=== PATIENT | male | born 1985 | race African-American/Black ===

== ENCOUNTER 2021-06-06 09:28 | Emergency (ER) | payer OTHER, SELFPAY ==
[2021-06-06 09:30] VITALS: BP 146/82; PULSE 74; RESP 18; TEMP 36.7; O2SAT 94; BMI 51.2
--- NOTE | 2021-06-06 09:57 | ED.GENADULT ---
HPI - General Adult General Chief complaint: General Medical Stated complaint: sore throat and ear pain Time Seen by Provider: 06/06/21 09:52 Source: patient Mode of arrival: ambulatory Limitations: no limitations History of Present Illness HPI narrative: 35 y/o male presents to the ER with a few days of sore throat, dry cough, headache and ear pressure. He has a runny nose and nasal congestion. He denies any known sick contacts. He is vaccinated for both Flu and COVID. He denies SOB, chest pain or difficulty breathing. He reports sore throat is the worst symptom, worse with eating and drinking but he is able to tolerate PO at home. He reports history of several throat infections in the past requiring abx. MD complaint: sore throat Onset (ago): day(s) (3) Location: head, face and mouth Radiation: non-radiation Severity: moderate Severity scale (1-10): 5 Quality: aching Pain Consistency: constant Relieving factors: none Exacerbating factors: eating Associated symptoms: cough and headaches Treatments prior to arrival: none Related Data Previous Rx's Medication Instructions Recorded azithromycin 250 mg tablet See Rx Instructions .ROUTE 06/06/21 (Zithromax Z-Edu) .COMPLEX #6 tab ibuprofen 600 mg tablet 600 mg PO Q8H PRN #20 tab 06/06/21 Allergies Allergy/AdvReac Type Severity Reaction Status Date / Time No Known Allergies Allergy Verified 06/06/21 09:38 [No Known Allergies*] Review of Systems Review of Systems: Constitutional: No Fever, No Chills ENT/Mouth: + sore throat, + Rhinorrhea, + Swallowing Difficulty, +Otalgia Eyes: No Eye Pain, No Swelling, No Redness Cardiovascular: No Chest Pain, No SOB, No Orthopnea, No Edema Respiratory: + Cough, No Sputum, No Wheezing, No dyspnea Gastrointestinal: No Nausea, No Vomiting, No Diarrhea, No abdominal Pain Musculoskeletal: No joint pain, No Myalgias Skin: No Skin Lesions, No rash Neuro: No Weakness, No Numbness, No Dizziness, + Headache Heme/Lymph: No Lymphadenopathy PMFSH Past Medical History Medical History (Updated 06/06/21 @ 10:45 by SHAWANDA Mcgee) HTN (hypertension) Social History Social History Advance Directives: No Advance Directives Information Provided: Yes Physical Exam ED Vital Signs: Vital Signs - 24 hr 06/06/21 09:30 Temperature 98.1 F Pulse Rate 74 Respiratory Rate 18 Blood Pressure 146/82 H Pulse Oximetry 94 BMI result Body Mass Index 51.2 Appearance: Alert. Oriented X3. No acute distress. Eyes: Pupils equal, round and reactive to light. ENT: Pharynx moist mucous membranes, bilateral tonsillar enlargement and erythema without exudate. Uvula midline. Normal voice, handling secretions normally. Ears have erythematous but not bulging tympanic membranes bilaterally. Landmarks are visible. Neck: Normal inspection. Neck supple. No lymphadenopathy. CVS: Normal heart rate and rhythm. Pulses normal. Respiratory: No respiratory distress. Breath sounds normal. Skin: Skin warm and dry. Normal skin color. Normal skin turgor. No rashes. Extremities: No lower extremity edema. Neuro: Oriented X 3. Grossly normal, nonfocal Course Course Course Narrative: 35-year-old male presents to the ER with a few days of sore throat, headache, ear pressure, nasal congestion and cough. No known sick contacts. On examination he has bilateral tonsillar enlargement without exudate. No evidence of tonsillar abscess. His vital signs are normal and exam is otherwise unremarkable. He was tested for COVID, influenza, strep throat in all are negative. Given his history will treat with empiric course of azithromycin. He was encourage follow-up with his primary care doctor. Return precautions were discussed. Stable for discharge home. Medical Decision Making Lab Data Labs: Lab Results 06/06/21 06/06/21 06/06/21 Range/Units 09:44 09:44 10:07 COVID-19 ([facility]) Negative (Negative) COVID-19 Clin Com See Note Influenza Type A ([facility]) Negative (Negative) Influenza Type B ([facility]) Negative (Negative) Influenza A & B Note See Note S. pyogenes GrpA [facility] Negative (Negative) Discharge Plan Discharge Clinical Impression: Pharyngitis Patient Disposition: Home, Self-Care Instructions: Upper Respiratory Infection (DC) Additional Instructions: You are negative for COVID, Influenza, & Strep throat. Take the prescribed antibiotic as directed. Use warm salt water gargles several times per day for sore throat. Recommend over the counter Cepacol lozenges or Chloraseptic spray as needed for sore throat. If you develop new or worsening symptoms call 911 or come back to the ER for further evaluation. Prescriptions: New azithromycin [Zithromax Z-Edu] 250 mg tablet See Rx Instructions .ROUTE .COMPLEX Qty: 6 0RF Rx Instructions: take 500 mg today (day 1), then 250 mg for 4 days (days 2-5) ibuprofen 600 mg tablet 600 mg PO Q8H PRN (Reason: pain) Qty: 20 0RF Stand Alone Forms: Work/School Release Interventions: ED Discharge Assessment Last Done: 06/06/21 10:56 Discharge Date/Time: 06/06/21 10:57 Print Language: Belarusian
[2021-06-06 10:15] LABS: IDNOW Serial# 08D9AD1C; Influenza A Negative (Negative); Influenza B2 Negative (Negative)
[2021-06-06] MEDS: Ibuprofen 600 MG TABLET PO (10:25)
[2021-06-06] MEDS: Lidocaine HCl Viscous 2 % 15 ML SOLUTION MUCOUS MEM (10:25)
[2021-06-06 10:30] LABS: COVID-19 Test Negative (Negative)
[2021-06-06 10:31] LABS: Strep A Nucleic Acid Negative (Negative)
== END 2021-06-06 10:57 | disposition home or self-care (01) ==
PROVIDERS: Physician Assistant; Emergency Provider Emergency Medicine
DX: J02.9 Acute pharyngitis, unspecified (principal); I10 Essential (primary) hypertension; Z20.822 Contact with and (suspected) exposure to COVID-19
CPT/HCPCS: 36415; 87502; 87635; 87651; 99283

== ENCOUNTER 2021-12-01 12:05 | Emergency (ER) | payer OTHER, SELFPAY ==
--- NOTE | ~2021-12-01 | XR_ITS ---
EXAMINATION: XR CHEST CLINICAL INFORMATION: Cough, shortness of breath. COMPARISON: 04/09/2009 chest radiograph. TECHNIQUE: 2 views of the chest were obtained. FINDINGS: No significant abnormality is noted involving the heart, lungs, mediastinum, bony thorax or soft tissues. XR/XR chest 2V IMPRESSION: No acute cardiopulmonary process.
--- NOTE | ~2021-12-01 | CT_ITS ---
EXAMINATION: CT CHEST WITHOUT CONTRAST CLINICAL INFORMATION: sob, cp . COMPARISON: No pertinent prior studies are available for comparison. TECHNIQUE: Multidetector volumetric imaging was performed from the thoracic inlet through the lung bases without contrast. Sagittal and coronal reformatted images were obtained on the technologist workstation. Soft tissue and lung algorithms evaluated. Thick slab MIP images were performed to increase nodule conspicuity. This CT examination was performed using dose optimization techniques as appropriate, variously including the following: *Automated exposure control *Adjustment of mA and/or kV according to patient size (this includes techniques or standardized protocols for targeted exams where dose is matched to indication/reason for exam; i.e. extremities or head) *Use of iterative reconstruction technique DLP: 550 mGy-cm. FINDINGS: LUNG: Linear atelectatic changes of the right lung base. On the thin slice images there is a few mucous impacted or debris filled bronchi seen more so in the dependent right lower lobe as well. No dense consolidation. MEDIASTINUM: The mediastinum is normal. The central vascular structures are unremarkable. No hilar or mediastinal lymphadenopathy. CORONARY ARTERY CALCIFICATION: Absent PERICARDIUM/PLEURA: No significant effusion. No pleural mass or thickening. THYROID/VISUALIZED LOWER NECK: Unremarkable. CHEST WALL/AXILLA: Unremarkable. VISUALIZED UPPER ABDOMEN: Unremarkable. BONES: Unremarkable CT/CT chest wo IV con IMPRESSION: There are a few mucous impacted or debris-filled bronchi seen in the dependent right lower lobe. No dense consolidation otherwise.
[2021-12-01 16:03] VITALS: BP 143/92; PULSE 97; RESP 19; TEMP 37.4; O2SAT 97; BMI 50.1
[2021-12-01 16:13] LABS: MANUAL DIFF FLAG NO
[2021-12-01 16:15] LABS: Basophils Percent Auto 0.3 % (0-2); Eosinophils Percent Auto 0.2 % (0-4); Hematocrit 43.4 % (42.0-52.0); Hemoglobin 13.3 g/dl (14.0-18.0); Imm Gran Abs Auto 0.04 X10*3/uL (0.00-0.03); Imm Gran Pct Auto 0.4 % (0.0-0.4); Lymphocytes Absolute Auto 2.3 X10*3/uL (1.2-4.9); Lymphocytes Percent Auto 21.2 % (20-40); Mean Corpuscular HGB Conc 30.6 g/dl (31.0-36.0); Mean Corpuscular Hemoglobin 24.3 pg (27.0-33.0); Mean Corpuscular Volume 79.2 fL (80.0-98.0); Mean Platelet Volume 9.7 fL (9.4-12.4); Neutrophils Absolute Auto 7.6 x10*3/uL (2.0-8.3); Neutrophils Percent Auto 68.9 % (45-73); Platelet Count 345 X10*3/uL (160-400); Red Blood Count 5.48 X10*6/uL (4.60-5.80); Red Cell Distribution Width 15.4 % (11.0-16.0)
[2021-12-01 16:28] LABS: COVID-19 Test Negative (Negative)
[2021-12-01 16:36] LABS: Anion Gap 15 (12-20); Blood Urea Nitrogen 9 mg/dL (9-16); Calcium 9.1 mg/dL (8.4-10.2); Carbon Dioxide 27 mmol/L (22-29); Chloride 104 mmol/L (96-108); Estimated Glomerular Filt Rate > 60; Glucose Random 89 mg/dL (60-115); Potassium 4.5 mmol/L (3.3-5.1); Sodium 141 mmol/L (135-145)
[2021-12-01 20:43] VITALS: BP 137/67; PULSE 105; RESP 18; TEMP 37.6; O2SAT 97
--- NOTE | 2021-12-01 22:05 | ED_ITS ---
HPI - SOB/Dyspnea General Chief Complaint: Upper Respiratory Symptoms Stated Complaint: Cough/SOB/Pain in lungs Time Seen by Provider: 12/01/21 22:04 Source: patient Mode of arrival: ambulatory Limitations: language barrier History of Present Illness HPI Narrative: 35-year-old male presents for evaluation for 2 weeks of upper respiratory symptoms, shortness breath, fever, cough, sore throat, with multiple negative COVID tests. States that he has taken Motrin yesterday with poor effect. MD elicited complaint: shortness of breath and chest pain Onset (ago): week(s) (2) Context: recent illness Timing: constant and progressively worsening Severity: moderate Exacerbating factors: exertion, coughing, talking and deep breaths Relieving factors: nothing Associated symptoms: chest pain, fever, cough, wheezing and chest congestion Treatment prior to arrival: none Related Data Previous Rx's Medication Instructions Recorded azithromycin 250 mg tablet See Rx Instructions PO .COMPLEX #6 06/06/21 (Zithromax Z-Edu) tabs ibuprofen 600 mg tablet 600 mg PO Q8H PRN pain #20 tabs 06/06/21 azithromycin 250 mg tablet 250 mg PO DAILY 4 days #4 tabs 12/01/21 cephalexin 500 mg capsule 500 mg PO Q12H 10 days #20 caps 12/01/21 Allergies Allergy/AdvReac Type Severity Reaction Status Date / Time No Known Allergies Allergy Verified 06/06/21 09:38 [No Known Allergies*] Review of Systems Review of Systems: Constitutional: Positive Fever, positive Chills ENT/Mouth: Positive Ear Pain, No Hoarseness, positive sore throat Eyes: No Eye Pain, No Swelling, No Redness, No Foreign Body Cardiovascular: Positive Chest Pain, positive SOB Respiratory: Positive Cough, No Dyspnea Gastrointestinal: No Nausea, No Vomiting, No Diarrhea, No abdominal Pain Genitourinary: No Dysuria, No Hematuria Musculoskeletal: No joint pain, No Myalgias, No Joint Swelling Skin: No Skin lacerations, No rash Neuro: No Weakness, No Numbness, No Paresthesias, No Loss of Consciousness, No Dizziness, No Headache Psych: No Anxiety/Panic, No Depression Heme/Lymph: no easy bruising, no Lymphadenopathy Endocrine: No Polyuria, No Polydipsia Yes all other systems are reviewed and are negative PMFSH Past Medical History Attestation statement: The following information was validated with the patient. Source: old records reviewed Medical History HTN (hypertension) Social History Social History Advance Directives: No Advance Directives Information Provided: No Physical Exam Vital Signs: Vital Signs: Last Vital Signs Temp 99.1 F 12/01/21 23:30 Pulse 94 12/01/21 23:30 Resp 18 12/01/21 23:30 BP 129/64 12/01/21 23:30 Pulse Ox 97 12/01/21 23:30 O2 Del Method 12/01/21 23:30 BMI result Body Mass Index 50.1 Appearance: Alert. Oriented X3. Mild distress. Eyes: Pupils equal, round and reactive to light. ENT: Pharynx erythematous, bilateral tonsillar swelling with exudates. Centor scale 3 Neck: Normal inspection. Neck supple. Posterior and anterior cervical lymphadenopathy, no mastoid tenderness, no nuchal rigidity. CVS: Tachycardic heart rate and rhythm. Apical pulse with pulses to extremities. Respiratory: No respiratory distress. Breath sounds normal. Abdomen: Soft and nontender. Morbidly obese. Skin: Skin warm and dry. Normal skin color. Normal skin turgor. Extremities: No lower extremity edema. Gait well-balanced well coordinated. Neuro: No motor deficit. No sensory deficit. Cranial nerves 2-12 intact. Course Course Course Narrative: 35-year-old male presents for evaluation for 2 weeks of upper respiratory symptoms, fevers, chills, cough, shortness of breath, and sore throat. Has had multiple COVID test negative results. Took Motrin yesterday with poor he is able to eat and drink without difficulty, speaking in complete sentences, even unlabored respirations. Physical exam indicates bilateral tonsillar swelling with pharyngeal erythema, posterior and anterior cervical lymphadenopathy and scattered expiratory wheeze. Patient has intermittent fevers over the past 2 weeks, has been in the waiting room for 6 hours, labs and x-ray resulted while patient was in the emergency department waiting room. Patient has a white count of 11, negative COVID test, and an unremarkable chest x-ray. Considering patient's physical exam, will order CT scan of the chest due to patient's complaint of diffuse chest pain, pain on inspiration, cough and fevers. 23:40 CT scan is negative for acute findings, shows some debris in the bronchi, will treat for pharyngitis and bronchitis with azithromycin and Ceftin. Patient was offered Tylenol, stated that Tylenol ?makes stomach upset? and prefers Motrin. Will have patient take 600 mg of Motrin prior to discharge. diplomatic interpreter/translator utilized for all correspondence. Google translate utilized for discharge instructions. Patient verbalized understanding agrees. Discharge. Verbalized understanding signs symptoms indicating need for emergent intervention. MDM - SOB/Dyspnea Differential Diagnosis Differential diagnosis: Likely acute exacerbation of chronic obstructive airways disease, pneumonia, asthma with exacerbation, pleural effusion and sleep apnea Medical Records Attestation: I reviewed the patient's medical records. Lab Data Attestation: I reviewed the patient's lab results. Result diagrams: 12/01/21 16:10 12/01/21 16:10 Labs: Lab Results 12/01/21 12/01/21 12/01/21 Range/Units 16:10 16:10 16:10 WBC 11.0 H (4.8-10.8) X10*3/uL RBC 5.48 (4.60-5.80) X10*6/uL Hgb 13.3 L (14.0-18.0) g/dl Hct 43.4 (42.0-52.0) % MCV 79.2 L (80.0-98.0) fL MCH 24.3 L (27.0-33.0) pg MCHC 30.6 L (31.0-36.0) g/dl RDW 15.4 (11.0-16.0) % Plt Count 345 (160-400) X10*3/uL MPV 9.7 (9.4-12.4) fL Immature Gran % (Auto) 0.4 (0.0-0.4) % Neut % (Auto) 68.9 (45-73) % Lymph % (Auto) 21.2 (20-40) % [place] % (Auto) 9.0 (2-11) % Eos % (Auto) 0.2 (0-4) % Baso % (Auto) 0.3 (0-2) % Lymph # (Auto) 2.3 (1.2-4.9) X10*3/uL [place] # (Auto) 1.0 (0.1-1.2) X10*3/uL Eos # (Auto) 0.0 (0.0-0.4) X10*3/uL Baso # (Auto) 0.0 (0.0-0.2) X10*3/uL Abs Immat Gran (auto) 0.04 H (0.00-0.03) X10*3/uL Absolute Neuts (auto) 7.6 (2.0-8.3) x10*3/uL Absolute Nucleated RBC 0.000 (0.0-0.012) X10*3/uL Nucleated RBC % (auto) 0.0 (0.0-0.2) /100WBC Sodium 141 (135-145) mmol/L Potassium 4.5 (3.3-5.1) mmol/L Chloride 104 (96-108) mmol/L Carbon Dioxide 27 (22-29) mmol/L Anion Gap 15 (12-20) BUN 9 (9-16) mg/dL Creatinine 0.77 (0.5-1.4) mg/dL Estim Creat Clear Calc 166.0 Estimated GFR > 60 Random Glucose 89 (60-115) mg/dL Calcium 9.1 (8.4-10.2) mg/dL Troponin I High Sens (<3.5-35.0) ng/L COVID-19 ([facility]) Negative (Negative) COVID-19 Clin Com See Note 12/01/21 Range/Units 23:06 WBC (4.8-10.8) X10*3/uL RBC (4.60-5.80) X10*6/uL Hgb (14.0-18.0) g/dl Hct (42.0-52.0) % MCV (80.0-98.0) fL MCH (27.0-33.0) pg MCHC (31.0-36.0) g/dl RDW (11.0-16.0) % Plt Count (160-400) X10*3/uL MPV (9.4-12.4) fL Immature Gran % (Auto) (0.0-0.4) % Neut % (Auto) (45-73) % Lymph % (Auto) (20-40) % [place] % (Auto) (2-11) % Eos % (Auto) (0-4) % Baso % (Auto) (0-2) % Lymph # (Auto) (1.2-4.9) X10*3/uL [place] # (Auto) (0.1-1.2) X10*3/uL Eos # (Auto) (0.0-0.4) X10*3/uL Baso # (Auto) (0.0-0.2) X10*3/uL Abs Immat Gran (auto) (0.00-0.03) X10*3/uL Absolute Neuts (auto) (2.0-8.3) x10*3/uL Absolute Nucleated RBC (0.0-0.012) X10*3/uL Nucleated RBC % (auto) (0.0-0.2) /100WBC Sodium (135-145) mmol/L Potassium (3.3-5.1) mmol/L Chloride (96-108) mmol/L Carbon Dioxide (22-29) mmol/L Anion Gap (12-20) BUN (9-16) mg/dL Creatinine (0.5-1.4) mg/dL Estim Creat Clear Calc Estimated GFR Random Glucose (60-115) mg/dL Calcium (8.4-10.2) mg/dL Troponin I High Sens < 3.5 (<3.5-35.0) ng/L COVID-19 ([facility]) (Negative) COVID-19 Clin Com Imaging Data CT scan - chest: Attestation: I personally reviewed and interpreted this imaging study as follows: Radiologist's impression: FINDINGS: LUNG: Linear atelectatic changes of the right lung base. On the thin slice images there is a few mucous impacted or debris filled bronchi seen more so in the dependent right lower lobe as well. No dense consolidation. MEDIASTINUM: The mediastinum is normal.? The central vascular structures are unremarkable.? No hilar or mediastinal lymphadenopathy. CORONARY ARTERY CALCIFICATION: Absent PERICARDIUM/PLEURA: No significant effusion. No pleural mass or thickening. THYROID/VISUALIZED LOWER NECK: Unremarkable. CHEST WALL/AXILLA: Unremarkable. VISUALIZED UPPER ABDOMEN:? Unremarkable. BONES: Unremarkable CT/CT chest wo IV con IMPRESSION: There are a few mucous impacted or debris-filled bronchi seen in the dependent right lower lobe. No dense consolidation otherwise. Chest x-ray: Attestation: I personally reviewed and interpreted this imaging study as follows: Radiologist's impression: EXAMINATION: XR CHEST CLINICAL INFORMATION: Cough, shortness of breath. COMPARISON: 04/09/2009 chest radiograph. TECHNIQUE: 2 views of the chest were obtained. FINDINGS: No significant abnormality is noted involving the heart, lungs, mediastinum, bony thorax or soft tissues. XR/XR chest 2V IMPRESSION: No acute cardiopulmonary process. Discharge Plan Discharge Clinical Impression: Pharyngitis, Bronchitis Patient Disposition: Home, Self-Care Instructions: Pharyngitis (ED), Upper Respiratory Infection (ED), Acute Bronchitis (ED) Additional Instructions: Fue evaluado por dolor de garganta, tos y dolor en el pecho. La tomograf?a computarizada del t?rax indica bronquitis. El examen f?sico indica faringitis, inflamaci?n de las am?gdalas. [place] azitromicina 250 mg karmen los pr?ximos 4 d?as. Inicie nell medicamento el 02/12/2021, le dimos aguilar 1ra dosis en el departamento de emergencia. [place] Keflex 500 mg cada 12 horas karmen los pr?ximos 10 d?as. [place] Motrin 600 mg cada 6 horas seg?n sea necesario para controlar el dolor y la fiebre. La ?ltima dosis se administr? a las 00:00. [place] pr?xima dosis vence a las 06:00. Beber mucho l?quido. Seguimiento con el proveedor de atenci?n primaria esta semana. Isael por elegir nell departamento de emergencias para aguilar evaluaci?n. Por favor, perez un seguimiento con el m?dico de atenci?n primaria seg?n sea necesario. Regrese al departamento de emergencias por cualquier s?ntoma nuevo, preocupante o que empeore. You were evaluated for sore throat, cough and chest pain. CT scan of chest indicate bronchitis. Physical exam indicates pharyngitis, inflammation of the tonsils. Please take azithromycin 250 mg for the next 4 days. Start this medication on 12/02/2021, we gave your 1st dose in the emergency department. Take Keflex 500 mg every 12 hours for the next 10 days. Take Motrin 600 mg every 6 hours as needed for pain and fever management. The last dose was given at 00:00. Your next dose is due at 06:00. Drink plenty of fluids. Follow-up with primary care provider this week. Thank you for choosing this emergency department for evaluation. Please follow-up with primary care physician as needed. Return to the emergency department for any new, concerning, or worsening symptoms. Prescriptions: New cephalexin 500 mg capsule 500 mg PO Q12H 10 Days Qty: 20 0RF azithromycin 250 mg tablet 250 mg PO DAILY 4 Days Qty: 4 0RF Rx Instructions: start on 12/02/2021 No Action azithromycin [Zithromax Z-Edu] 250 mg tablet See Rx Instructions .ROUTE .COMPLEX Qty: 6 0RF Rx Instructions: take 500 mg today (day 1), then 250 mg for 4 days (days 2-5) ibuprofen 600 mg tablet 600 mg PO Q8H PRN (Reason: pain) Qty: 20 0RF Stand Alone Forms: Work/School Release Interventions: ED Discharge Assessment Last Done: 12/02/21 00:16
--- NOTE | 2021-12-01 22:13 | ECG_ITS ---
Test Reason : SHORTNESS OF BREATH Blood Pressure : / mmHG Vent. Rate : 100 BPM Atrial Rate : 100 BPM P-R Int : 152 ms QRS Dur : 084 ms QT Int : 334 ms P-R-T Axes : 024 051 -03 degrees QTc Int : 430 ms Normal sinus rhythm Nonspecific T wave abnormality Abnormal ECG T wave inversion no longer evident in Lateral leads Referred By: Arianna Villegas Electronically Signed By:ALEXSANDRA SOSA MD
[2021-12-01 23:30] VITALS: BP 129/64; PULSE 94; RESP 18; TEMP 37.3; O2SAT 97
[2021-12-01 23:32] LABS: Troponin-I High Sensitivity < 3.5 ng/L (<3.5-35.0)
[2021-12-02] MEDS: Azithromycin 500 MG TABLET PO (00:08)
[2021-12-02] MEDS: cephALEXin 500 MG CAPSULE PO (00:08)
[2021-12-02] MEDS: Ibuprofen 600 MG TABLET PO (00:08)
== END 2021-12-02 00:19 | disposition home or self-care (01) ==
PROVIDERS: Nurse Practitioner Family; Emergency Provider Emergency Medicine Emergency Medical Services
DX: J40 Bronchitis, not specified as acute or chronic (principal); R06.02 Shortness of breath; R07.89 Other chest pain; R50.9 Fever, unspecified; R05.9 Cough, unspecified; Z20.822 Contact with and (suspected) exposure to COVID-19; Z79.899 Other long term (current) drug therapy
CPT/HCPCS: 36415; 71046; 71250; 80048; 84484; 85025; 87635; 93005; 99284

== ENCOUNTER 2022-12-14 00:51 | Emergency (ER) | payer MEDICAID, SELFPAY ==
--- NOTE | 2022-12-14 | ECG_ITS ---
Test Reason : CHEST PAIN Blood Pressure : / mmHG Vent. Rate : 100 BPM Atrial Rate : 100 BPM P-R Int : 156 ms QRS Dur : 084 ms QT Int : 336 ms P-R-T Axes : 035 049 016 degrees QTc Int : 433 ms Sinus tachycardia Nonspecific T wave abnormality Abnormal ECG When compared with ECG of 01-DEC-2021 22:54, No significant change was found Referred By: Generic ED Physician Electronically Signed By:ALEXSANDRA SOSA MD
--- NOTE | ~2022-12-14 | XR_ITS ---
EXAMINATION: XR CHEST CLINICAL INFORMATION: Pain. COMPARISON: None available. TECHNIQUE: Frontal view of the chest was obtained. FINDINGS: No significant abnormality is noted involving the heart, lungs, mediastinum, bony thorax or soft tissues. XR/XR chest 1V IMPRESSION: Unremarkable examination.
[2022-12-14 01:02] VITALS: BP 152/92; PULSE 94; RESP 19; TEMP 36.8; O2SAT 96; BMI 52.0
[2022-12-14 01:48] LABS: MANUAL DIFF FLAG NO
[2022-12-14 01:54] LABS: Basophils Percent Auto 0.3 % (0-2); Eosinophils Absolute Auto 0.1 X10*3/uL (0.0-0.4); Eosinophils Percent Auto 0.9 % (0-4); Hemoglobin 13.3 g/dl (14.0-18.0); Imm Gran Abs Auto 0.03 X10*3/uL (0.00-0.03); Imm Gran Pct Auto 0.3 % (0.0-0.4); Lymphocytes Absolute Auto 4.5 X10*3/uL (1.2-4.9); Lymphocytes Percent Auto 38.9 % (20-40); Mean Corpuscular HGB Conc 30.9 g/dl (31.0-36.0); Mean Corpuscular Hemoglobin 24.1 pg (27.0-33.0); Mean Platelet Volume 9.9 fL (9.4-12.4); Monocytes Absolute Auto 0.7 X10*3/uL (0.1-1.2); Monocytes Percent Auto 5.6 % (2-11); Neutrophils Absolute Auto 6.3 x10*3/uL (2.0-8.3); Platelet Count 288 X10*3/uL (160-400); Red Blood Count 5.51 X10*6/uL (4.60-5.80); Red Cell Distribution Width 15.5 % (11.0-16.0); White Blood Count 11.7 X10*3/uL (4.8-10.8)
[2022-12-14 02:08] LABS: Alanine Aminotransferase 16 U/L (0-40); Alkaline Phosphatase 80 U/L (39-117); Anion Gap 12 (12-20); Aspartate Amino Transferase 15 U/L (5-37); Bilirubin Direct < 0.2 mg/dL (0.0-0.5); Bilirubin Total 0.2 mg/dL (0.0-1.0); Blood Urea Nitrogen 7 mg/dL (9-16); Calcium 9.2 mg/dL (8.4-10.2); Carbon Dioxide 26 mmol/L (22-29); Chloride 105 mmol/L (96-108); Creatinine Clr Calc Pharmacy 159.8; Estimated Glomerular Filt Rate > 60; Glucose Random 137 mg/dL (60-115); Lipase 27 U/L (8-78); Potassium 3.5 mmol/L (3.3-5.1); Sodium 139 mmol/L (135-145); Total Protein 8.1 g/dL (6.5-8.0)
[2022-12-14 02:10] LABS: Troponin-I High Sensitivity 27.1 ng/L (<3.5-35.0)
--- NOTE | 2022-12-14 03:49 | ED.CHESTPAIN ---
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 No known trauma or overuse. Denies travel or procedures. he feels short of breath. He also has URI symptoms. MD complaint: chest pain Onset (ago): week(s) (1) Timing of current episode: episodic Prior episodes: Yes Onset: during rest Pain location: left chest Pain radiation: none Severity: moderate Quality: aching Relieving factors: nothing Exacerbating factors: nothing Context: recent illness Associated symptoms: other (myalgias and URI symptoms) Treatment prior to arrival: none Related Data Previous Rx's Medication Instructions Recorded azithromycin 250 mg tablet See Rx Instructions PO .COMPLEX #6 06/06/21 (Zithromax Z-Edu) tabs ibuprofen 600 mg tablet 600 mg PO Q8H PRN pain #20 tabs 06/06/21 azithromycin 250 mg tablet 250 mg PO DAILY 4 days #4 tabs 12/01/21 cephalexin 500 mg capsule 500 mg PO Q12H 10 days #20 caps 12/01/21 cyclobenzaprine 10 mg tablet 10 mg PO TID PRN muscle spasm #20 12/14/22 tabs Allergies Allergy/AdvReac Type Severity Reaction Status Date / Time No Known Allergies Allergy Verified 06/06/21 09:38 [No Known Allergies*] Review of Systems Review of Systems: Constitutional : No Weight loss, No Fever, No Chills ENT/Mouth : No sore throat, No Rhinorrhea Eyes: No Eye Pain, No Swelling Cardiovascular : pos Chest Pain, pos SOB, no Dyspnea on Exertion, No Orthopnea, No Edema, No Palpitations Respiratory : No Cough, No Sputum Gastrointestinal : no Nausea, No Vomiting, No Diarrhea, No abdominal Pain, No Hematochezia, No Melena Genitourinary : No Dysuria, No Urinary Frequency Musculoskeletal : No joint pain, pos Myalgias, No Joint Swelling Skin : No Skin Lesions, No rash Neuro : No Weakness, No Numbness, No Dizziness, No Headache Psych : No Anxiety/Panic, No Depression Heme/Lymph: No Bruising, No Lymphadenopathy Endocrine : No Polyuria, No Polydipsia All other systems reviewed and are negative [facility] Past Medical History Attestation statement: The following information was validated with the patient. Source: old records reviewed Medical History HTN (hypertension) Social History Social History Patient Tobacco Use Status: Never used Tobacco Advance Directives: No Advance Directives Information Provided: No Physical Exam Vital Signs: Vital Signs: Last Vital Signs Temp 98.2 F 12/14/22 01:02 Pulse 94 12/14/22 01:02 Resp 19 12/14/22 01:02 BP 152/92 H 12/14/22 01:02 Pulse Ox 96 12/14/22 01:02 O2 Del Method Room Air 12/14/22 01:02 BMI result Body Mass Index 52.0 Appearance: Alert. Oriented X3. No acute distress. Eyes: Pupils equal, round and reactive to light. ENT: Pharynx normal. Neck: Normal inspection. Neck supple. CVS: Normal heart rate and rhythm. Pulses normal. Chest: ttp along L pectoralis and shoulder area reproduces pain Respiratory: No respiratory distress. Breath sounds normal. Abdomen: Soft and nontender. Skin: Skin warm and dry. Normal skin color. Normal skin turgor. Extremities: No lower extremity edema. No calf ttp Neuro: Oriented X 3. No motor deficit. No sensory deficit. Medical Decision Making Medical Decision Making [facility] Narrative: 36 yo male with obesity, HTN not on medications here with c/o L sided body pain he is NV intact I can reproduce the pain - he denies trauma or overuse. At this time he has chest pain as well and URI symptoms will obtain basic labs, troponin x 2, ddimer, CXR and covid swab. Pulses intact doubt dissection and pain x 1 week. Differential Diagnosis Differential Diagnoses: The differential diagnosis associated with the presentation includes atypical ACS, VTE, viral syndrome Admission/Observation Consideration of admission/observation: Escalation of care including admission/observation considered covid negative, cxr negative, trop flat x 2, nonischemic EKG, has pain throughout body, lytes normal stable for DC at this time Lab Data [facility] Lab Attestation statement: I reviewed the patient's lab results. 12/14/22 01:44 12/14/22 01:44 Labs: Lab Results 12/14/22 12/14/22 Range/Units 01:44 04:46 WBC 11.7 H (4.8-10.8) X10*3/uL RBC 5.51 (4.60-5.80) X10*6/uL Hgb 13.3 L (14.0-18.0) g/dl Hct 43.0 (42.0-52.0) % MCV 78.0 L (80.0-98.0) fL MCH 24.1 L (27.0-33.0) pg MCHC 30.9 L (31.0-36.0) g/dl RDW 15.5 (11.0-16.0) % Plt Count 288 (160-400) X10*3/uL MPV 9.9 (9.4-12.4) fL Immature Gran % (Auto) 0.3 (0.0-0.4) % Neut % (Auto) 54.0 (45-73) % Lymph % (Auto) 38.9 (20-40) % [place] % (Auto) 5.6 (2-11) % Eos % (Auto) 0.9 (0-4) % Baso % (Auto) 0.3 (0-2) % Lymph # (Auto) 4.5 (1.2-4.9) X10*3/uL [place] # (Auto) 0.7 (0.1-1.2) X10*3/uL Eos # (Auto) 0.1 (0.0-0.4) X10*3/uL Baso # (Auto) 0.0 (0.0-0.2) X10*3/uL Abs Immat Gran (auto) 0.03 (0.00-0.03) X10*3/uL Absolute Neuts (auto) 6.3 (2.0-8.3) x10*3/uL Absolute Nucleated RBC 0.000 (0.0-0.012) X10*3/uL Nucleated RBC % (auto) 0.0 (0.0-0.2) /100WBC D-Dimer High Sensitivty < 150 NG/ML Sodium 139 (135-145) mmol/L Potassium 3.5 D (3.3-5.1) mmol/L Chloride 105 (96-108) mmol/L Carbon Dioxide 26 (22-29) mmol/L Anion Gap 12 (12-20) BUN 7 L (9-16) mg/dL Creatinine 0.81 (0.5-1.4) mg/dL Estim Creat Clear Calc 159.8 Estimated GFR > 60 Random Glucose 137 H (60-115) mg/dL Calcium 9.2 (8.4-10.2) mg/dL Magnesium 1.8 (1.6-2.6) mg/dL Total Bilirubin 0.2 (0.0-1.0) mg/dL Direct Bilirubin < 0.2 (0.0-0.5) mg/dL AST 15 (5-37) U/L ALT 16 (0-40) U/L Alkaline Phosphatase 80 (39-117) U/L Total Creatine Kinase 125 (38-174) U/L Troponin I High Sens 27.1 26.5 (<3.5-35.0) ng/L Total Protein 8.1 H (6.5-8.0) g/dL Albumin 4.0 (3.5-5.0) g/dL Lipase 27 (8-78) U/L COVID-19 (ROBERT) Negative (Negative) COVID-19 Clin Com See Note Independent Interpretation I performed an independent interpretation of an: EKG and Plain X-Ray Interpretation: Rate: 100 Rhythm: NSR [place]: normal Normal P waves. Normal JESSICA. Normal QRS complex. ST T wave : nonspecific ST T wave changes lateral leads qTC: normal prior studies: no acute ischemia unchanged from priors The study has been interpreted contemporaneously by me. . Radiology Impression Discussion of test interpretation with radiology: I have reviewed the radiologist's reading. Independent Historian Clinical information obtained from an independent historian. History obtained from or confirmed by: Spouse External Record Review External record reviewed: Inpatient record Prescription Management I considered prescription management with: Other Discharge Plan Discharge Clinical Impression: Atypical chest pain, Myalgia Patient Disposition: Home, Self-Care Instructions: Chest Pain (ED), Musculoskeletal Pain (ED) Additional Instructions: tests for heart normal x 2, blood clot test negative, covid negative, chest ray normal - return for any worsening of pain, fevers, vomiting, increased pain or trouble breathing or any other concerns. pruebas de coraz?n normal x 2, prueba de co?gulo de edwige negativa, covid negativa, radiograf?a de t?rax normal: regrese si empeora el dolor, fiebre, v?mitos, aumento del dolor o dificultad para respirar o cualquier otra inquietud. Prescriptions: New cyclobenzaprine 10 mg tablet 10 mg PO TID PRN (Reason: muscle spasm) Qty: 20 0RF No Action azithromycin [Zithromax Z-Edu] 250 mg tablet See Rx Instructions .ROUTE .COMPLEX Qty: 6 0RF Rx Instructions: take 500 mg today (day 1), then 250 mg for 4 days (days 2-5) ibuprofen 600 mg tablet 600 mg PO Q8H PRN (Reason: pain) Qty: 20 0RF cephalexin 500 mg capsule 500 mg PO Q12H 10 Days Qty: 20 0RF azithromycin 250 mg tablet 250 mg PO DAILY 4 Days Qty: 4 0RF Rx Instructions: start on 12/02/2021 Referrals: Physician,None [Primary Care Provider] - Print Language: Citizen Of [place]
[2022-12-14 05:08] LABS: D Dimer High Sensitivity < 150 NG/ML
[2022-12-14 05:09] LABS: COVID-19 Test Negative (Negative); IDNOW Serial# 6674DD1D
[2022-12-14 05:14] LABS: Magnesium 1.8 mg/dL (1.6-2.6)
[2022-12-14 05:18] LABS: Troponin-I High Sensitivity 26.5 ng/L (<3.5-35.0)
[2022-12-14] MEDS: Acetaminophen 325 MG TABLET 650 MG PO (06:34)
[2022-12-14] MEDS: Cyclobenzaprine HCl 5 MG TABLET PO (06:34)
== END 2022-12-14 06:37 | disposition home or self-care (01) ==
PROVIDERS: Emergency Provider Emergency Medicine
DX: R07.89 Other chest pain (principal); R00.0 Tachycardia, unspecified; M79.10 Myalgia, unspecified site; Z11.52 Encounter for screening for COVID-19; Z20.822 Contact with and (suspected) exposure to COVID-19; Z79.899 Other long term (current) drug therapy
CPT/HCPCS: 36415; 71045; 80048; 80076; 82550; 83690; 83735; 84484; 85025; 85379; 87635; 93005; 99283; 99284

== ENCOUNTER 2023-04-06 20:03 | Emergency (ER) | payer OTHER, SELFPAY ==
--- NOTE | ~2023-04-06 | XR_ITS ---
EXAMINATION: XR CHEST CLINICAL INFORMATION: Chest pain. COMPARISON: Most recent chest radiograph dated 12/14/2022. TECHNIQUE: 2 views of the chest were obtained. FINDINGS: The lungs are clear. The cardiomediastinal silhouette is normal in size. There is no pleural effusion or pneumothorax. No acute osseous abnormality. XR/XR chest 2V IMPRESSION: No acute cardiopulmonary findings.
--- NOTE | 2023-04-06 20:09 | ECG_ITS ---
Test Reason : CHEST PAIN Blood Pressure : / mmHG Vent. Rate : 094 BPM Atrial Rate : 094 BPM P-R Int : 158 ms QRS Dur : 088 ms QT Int : 338 ms P-R-T Axes : 036 052 026 degrees QTc Int : 422 ms Normal sinus rhythm Nonspecific T wave abnormality Abnormal ECG When compared with ECG of 14-DEC-2022 00:53, No significant changes seen Referred By: Delicia Mendez Electronically Signed By:CATALINA NUR
[2023-04-06 20:32] VITALS: BP 151/78; PULSE 89; RESP 17; TEMP 36.3; O2SAT 97; BMI 44.1
--- NOTE | 2023-04-06 20:43 | ED_ITS ---
HPI - General Adult General Chief complaint: Chest Pain Stated complaint: chest pain, pain through neck to r ear Time Seen by Provider: 04/06/23 23:40 Source: patient Mode of arrival: ambulatory Limitations: language barrier History of Present Illness HPI narrative: 37-year-old male presenting to the emergency department with complaint of chest pain radiating to right side of neck and ear, also complains of headache. States symptoms have been ongoing for months, was seen here in December for same but is concerned that the symptoms are still occurring. Also complains of dyspnea on exertion, worsening CP with exertion. Called his PCP and was told he had to come to the ED prior to being seen. Related Data Previous Rx's Medication Instructions Recorded azithromycin 250 mg tablet See Rx Instructions PO .COMPLEX #6 06/06/21 (Zithromax Z-Edu) tabs ibuprofen 600 mg tablet 600 mg PO Q8H PRN pain #20 tabs 06/06/21 azithromycin 250 mg tablet 250 mg PO DAILY 4 days #4 tabs 12/01/21 cephalexin 500 mg capsule 500 mg PO Q12H 10 days #20 caps 12/01/21 cyclobenzaprine 10 mg tablet 10 mg PO TID PRN muscle spasm #20 12/14/22 tabs naproxen 500 mg tablet 500 mg PO BID PRN pain 7 days #14 04/07/23 tabs oxycodone 5 mg tablet 5 mg PO Q6H PRN pain #10 tabs 04/07/23 Allergies Allergy/AdvReac Type Severity Reaction Status Date / Time No Known Allergies Allergy Verified 06/06/21 09:38 [No Known Allergies*] [facility] Past Medical History Medical History HTN (hypertension) Social History Social History Patient Tobacco Use Status: Never used Tobacco Advance Directives: No Advance Directives Information Provided: No Physical Exam ED Vital Signs: Vital Signs - 24 hr 04/06/23 20:32 04/06/23 23:11 04/06/23 23:41 Temperature 97.3 F 98.2 F 98.2 F Pulse Rate 89 88 92 Respiratory Rate 17 18 17 Blood Pressure 151/78 H 123/71 115/68 Pulse Oximetry 97 97 96 Oxygen Delivery Method Room Air Room Air Room Air BMI result Body Mass Index 44.1 Course Course Course Narrative: This is a rapid medical exam: Additional HPI, ROS, PE not included below will be deferred to primary provider. Patient is a 37-year-old male presenting to the emergency department with complaint of chest pain radiating to right side of neck and ear, also complains of headache. States symptoms have been ongoing for months, was seen here in December for same but is concerned that the symptoms are still occurring. Also complains of dyspnea on exertion, worsening CP with exertion. Called his PCP and was told he had to come to the ED prior to being seen. Plan: EKG, labs, CXR Medical Decision Making Lab Data 04/06/23 20:56 04/06/23 20:56 Labs: Lab Results 04/06/23 Range/Units 20:56 WBC 8.3 (4.8-10.8) X10*3/uL RBC 5.54 (4.60-5.80) X10*6/uL Hgb 13.4 L (14.0-18.0) g/dl Hct 43.2 (42.0-52.0) % MCV 78.0 L (80.0-98.0) fL MCH 24.2 L (27.0-33.0) pg MCHC 31.0 (31.0-36.0) g/dl RDW 15.5 (11.0-16.0) % Plt Count 298 (160-400) X10*3/uL MPV 9.6 (9.4-12.4) fL Immature Gran % (Auto) 0.2 (0.0-0.4) % Neut % (Auto) 55.2 (45-73) % Lymph % (Auto) 39.0 (20-40) % [place] % (Auto) 4.1 (2-11) % Eos % (Auto) 1.3 (0-4) % Baso % (Auto) 0.2 (0-2) % Lymph # (Auto) 3.3 (1.2-4.9) X10*3/uL [place] # (Auto) 0.3 (0.1-1.2) X10*3/uL Eos # (Auto) 0.1 (0.0-0.4) X10*3/uL Baso # (Auto) 0.0 (0.0-0.2) X10*3/uL Abs Immat Gran (auto) 0.02 (0.00-0.03) X10*3/uL Absolute Neuts (auto) 4.6 (2.0-8.3) x10*3/uL Absolute Nucleated RBC 0.000 (0.0-0.012) X10*3/uL Nucleated RBC % (auto) 0.0 (0.0-0.2) /100WBC PT 12.4 (11.1-13.3) SEC INR 1.0 (0.9-1.1) Sodium 142 (135-145) mmol/L Potassium 3.9 (3.3-5.1) mmol/L Chloride 106 (96-108) mmol/L Carbon Dioxide 28 (22-29) mmol/L Anion Gap 12 (12-20) BUN 8 L (9-16) mg/dL Creatinine 0.79 (0.5-1.4) mg/dL Estim Creat Clear Calc 178.6 Estimated GFR > 60 Random Glucose 159 H (60-115) mg/dL Calcium 8.9 (8.4-10.2) mg/dL Total Bilirubin 0.2 (0.0-1.0) mg/dL AST 15 (5-37) U/L ALT 17 (0-40) U/L Alkaline Phosphatase 77 (39-117) U/L Troponin I High Sens < 2.7 D (<3.5-35.0) ng/L B-Natriuretic Peptide < 10 (<100) pg/mL Total Protein 7.8 (6.5-8.0) g/dL Albumin 3.8 (3.5-5.0) g/dL Discharge Plan Discharge Clinical Impression: Chest pain, Acute costochondritis Patient Disposition: Home, Self-Care Instructions: Costochondritis (ED) Additional Instructions: Your chest x-ray was normal Your EKG was normal Your complete blood count and comprehensive metabolic panel were normal Your troponin (marker of heart damage) detectable limits in your blood which is very reassuring suggesting that your pain is not caused by heart pain or a blood clot in your heart arteries. You do have tenderness when I push on the muscles and joints of your chest and your pain is most likely caused by inflammation in these areas. Take ibuprofen 200 mg pills, 3 pills every 6 hours as needed for pain. Take Tylenol (acetaminophen) 500 mg pills, 2 pills every 4-6 hours as needed for pain. For pain not relieved by ibuprofen or Tylenol take oxycodone 5 mg pills, 1 pill every 4 hours as needed for pain. Do not drive or work while taking this medication since they can cause sleepiness. Oxycodone is a narcotic medication that can be addicting. If you are concerned about addiction you can ask the pharmacist for less pills or do not get this prescription filled. Follow-up with your doctor in 2 days. Please return to the emergency department if your symptoms get worse or if you develop any symptoms that are concerning to you. You should discuss getting your cholesterol checked with your primary care provider, you will need to fast for at least 8-12 hours before getting the test in order for the test to be accurate. Follow-up with your doctor in 2 days. Please return to the emergency department if your symptoms get worse or if you develop any symptoms that are concerning to you. Prescriptions: New oxycodone 5 mg tablet 5 mg PO Q6H PRN (Reason: pain) Qty: 10 0RF Rx Instructions: Patient may request partial refill; Partial Fill upon patient request. naproxen 500 mg tablet 500 mg PO BID PRN (Reason: pain) 7 Days Qty: 14 0RF No Action azithromycin [Zithromax Z-Edu] 250 mg tablet See Rx Instructions .ROUTE .COMPLEX Qty: 6 0RF Rx Instructions: take 500 mg today (day 1), then 250 mg for 4 days (days 2-5) ibuprofen 600 mg tablet 600 mg PO Q8H PRN (Reason: pain) Qty: 20 0RF cephalexin 500 mg capsule 500 mg PO Q12H 10 Days Qty: 20 0RF azithromycin 250 mg tablet 250 mg PO DAILY 4 Days Qty: 4 0RF Rx Instructions: start on 12/02/2021 cyclobenzaprine 10 mg tablet 10 mg PO TID PRN (Reason: muscle spasm) Qty: 20 0RF
[2023-04-06 21:00] LABS: MANUAL DIFF FLAG NO
[2023-04-06 21:03] LABS: Basophils Percent Auto 0.2 % (0-2); Eosinophils Absolute Auto 0.1 X10*3/uL (0.0-0.4); Eosinophils Percent Auto 1.3 % (0-4); Hematocrit 43.2 % (42.0-52.0); Hemoglobin 13.4 g/dl (14.0-18.0); Imm Gran Abs Auto 0.02 X10*3/uL (0.00-0.03); Imm Gran Pct Auto 0.2 % (0.0-0.4); Lymphocytes Absolute Auto 3.3 X10*3/uL (1.2-4.9); Mean Corpuscular Hemoglobin 24.2 pg (27.0-33.0); Mean Platelet Volume 9.6 fL (9.4-12.4); Monocytes Absolute Auto 0.3 X10*3/uL (0.1-1.2); Monocytes Percent Auto 4.1 % (2-11); Neutrophils Absolute Auto 4.6 x10*3/uL (2.0-8.3); Neutrophils Percent Auto 55.2 % (45-73); Platelet Count 298 X10*3/uL (160-400); Red Blood Count 5.54 X10*6/uL (4.60-5.80); Red Cell Distribution Width 15.5 % (11.0-16.0); White Blood Count 8.3 X10*3/uL (4.8-10.8)
[2023-04-06 21:08] LABS: Prothrombin Time 12.4 SEC (11.1-13.3)
[2023-04-06 21:17] LABS: Alanine Aminotransferase 17 U/L (0-40); Albumin Level 3.8 g/dL (3.5-5.0); Alkaline Phosphatase 77 U/L (39-117); Anion Gap 12 (12-20); Aspartate Amino Transferase 15 U/L (5-37); Bilirubin Total 0.2 mg/dL (0.0-1.0); Blood Urea Nitrogen 8 mg/dL (9-16); Calcium 8.9 mg/dL (8.4-10.2); Carbon Dioxide 28 mmol/L (22-29); Chloride 106 mmol/L (96-108); Creatinine Clr Calc Pharmacy 178.6; Estimated Glomerular Filt Rate > 60; Glucose Random 159 mg/dL (60-115); Potassium 3.9 mmol/L (3.3-5.1); Sodium 142 mmol/L (135-145); Total Protein 7.8 g/dL (6.5-8.0)
[2023-04-06 21:25] LABS: B Type Natriuretic Peptide < 10 pg/mL (<100)
[2023-04-06 21:28] LABS: Troponin-I High Sensitivity < 2.7 ng/L (<3.5-35.0)
[2023-04-06 23:11] VITALS: BP 123/71; PULSE 88; RESP 18; TEMP 36.8; O2SAT 97
[2023-04-06 23:41] VITALS: BP 115/68; PULSE 92; RESP 17; TEMP 36.8; O2SAT 96
[2023-04-07] MEDS: oxyCODONE HCl Immed Release 5 MG TABLET PO (00:43)
[2023-04-07] MEDS: NaPROXEN 500 MG TABLET PO (00:43)
== END 2023-04-07 01:45 | disposition home or self-care (01) ==
PROVIDERS: Registered Nurse Emergency; Emergency Provider Emergency Medicine Emergency Medical Services
DX: M94.0 Chondrocostal junction syndrome [Tietze] (principal); I10 Essential (primary) hypertension
CPT/HCPCS: 36415; 71046; 80053; 83880; 84484; 85025; 85610; 93005; 99283; 99285

== ENCOUNTER → 2023-04-06 20:09 | Outpatient (BNV) | payer OTHER, SELFPAY | PROVIDERS: Emergency Provider Emergency Medicine Emergency Medical Services; Visit Provider Internal Medicine | DX: R94.31 Abnormal electrocardiogram [ECG] [EKG] (principal); R07.9 Chest pain, unspecified | CPT/HCPCS: 93010 ==

== ENCOUNTER 2023-06-07 09:44 | Emergency (ER) | payer SELFPAY ==
[2023-06-07 10:39] VITALS: BP 130/76; PULSE 99; RESP 19; TEMP 36.8; O2SAT 97; BMI 52.3
--- NOTE | 2023-06-07 12:46 | ED.GENADULT ---
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 Patient has had symptoms for about 2 weeks. He was seen on 05/29/2023 in [place]. Was prescribed penicillin, ibuprofen and Tylenol He took a few doses of the penicillin but stopped taking it because ?it upset my stomach. ? He reports his pain is worsening Denies any fevers, chills No other complaints or concerns at this time Related Data Previous Rx's ?Medication ?Instructions ?Recorded azithromycin 250 mg tablet See Rx Instructions PO .COMPLEX #6 06/06/21 (Zithromax Z-Edu) tabs ibuprofen 600 mg tablet 600 mg PO Q8H PRN pain #20 tabs 06/06/21 azithromycin 250 mg tablet 250 mg PO DAILY 4 days #4 tabs 12/01/21 cephalexin 500 mg capsule 500 mg PO Q12H 10 days #20 caps 12/01/21 cyclobenzaprine 10 mg tablet 10 mg PO TID PRN muscle spasm #20 12/14/22 tabs naproxen 500 mg tablet 500 mg PO BID PRN pain 7 days #14 04/07/23 tabs oxycodone 5 mg tablet 5 mg PO Q6H PRN pain #10 tabs 04/07/23 clindamycin HCl 300 mg capsule 300 mg PO Q8H #30 caps 06/07/23 dexamethasone 4 mg tablet 4 mg PO BID #4 tabs 06/07/23 Allergies Allergy/AdvReac Type Severity Reaction Status Date / Time penicillin V [From Pen-Vejus K] AdvReac Stomach Verified 06/07/23 10:50 Upset Review of Systems Constitutional: Constitutional: Denies body ache(s), Denies chills and Denies fever(s) Eyes: Eyes: Denies blurry vision ENT: Reports sore throat, Reports throat swelling and Denies tongue swelling Cardiovascular: Cardiovascular: Denies chest pain and Denies dyspnea Respiratory: Respiratory: Denies cough and Denies dyspnea Gastrointestinal: Gastrointestinal: Denies abdominal pain, Denies nausea and Denies vomiting Musculoskeletal: Musculoskeletal: Denies back pain Integumentary/Breasts: Skin/Breast: Denies rash Allergic/Immunologic: Allergic/Immunologic: Reports throat swelling and Denies tongue swelling PMFSH Past Medical History Medical History HTN (hypertension) Social History Social History Patient Tobacco Use Status: Never used Tobacco Do you have a plan to hurt others: No Plan Physical Exam ED Vital Signs: Vital Signs - 24 hr 06/07/23 10:39 Temperature 98.3 F Pulse Rate 99 Respiratory Rate 19 Blood Pressure 130/76 Pulse Oximetry 97 Oxygen Delivery Method Room Air BMI result Body Mass Index 52.3 Const General: healthy appearing, comfortable, no acute distress, alert and awake Nutritional Appearance: well nourished Orientation/consciousness: patient oriented x3 HENMT Other: Erythematous retropharynx with whitish exudates. No evidence of peritonsillar abscess. Head: Yes normocephalic and Yes atraumatic Eyes Eyelids: Yes eyelids normal Conjunctivae: conjunctivae normal Sclerae: sclerae normal Corneas: corneas normal Pupils: Equal, round and reactive pupils present EOM: EOMs intact bilaterally Neck Neck: Yes full ROM Resp Effort & Inspection: normal respiratory effort, able to speak in complete sentences, no audible wheezes and not labored Auscultation: clear to auscultation bilaterally Skin General skin exam: elasticity normal Neuro General: patient oriented x3 Cranial nerves: Yes Equal, round and reactive pupils present and Yes Bilaterally intact EOM present Cognition (Neuro): normal cognition Extrem Other: Moving all extremities well without any obvious deformities Medical Decision Making Medical Decision Making MDM Narrative: Patient was given penicillin 10 days ago but did not completely course because it hurt his stomach. He will change the patient's antibiotics to clindamycin. He will be given 2 days' worth of dexamethasone to help with his discomfort, but there is no evidence of peritonsillar abscess. Differential Diagnosis Differential Diagnoses: The differential diagnosis associated with the presentation includes Pharyngitis Exudative pharyngitis Upper respiratory infection Strep throat Lab Data Labs: Lab Results 06/07/23 Range/Units 11:00 COVID-19 ([facility]ERT) Negative (Negative) COVID-19 Clin Com See Note Influenza Type A (SIG[facility]REDO) Negative (Negative) Influenza Type B (SIG[facility]REDO) Negative (Negative) Influenza A & B Note See Note S. pyogenes GrpA SIG[facility]O Positive A (Negative) Discharge Plan Discharge Clinical Impression: Strep throat Patient Disposition: Home, Self-Care Instructions: Strep Throat (ED) Additional Instructions: Take clindamycin 3 times daily for 10 days Take the entire course of antibiotics even if you start to feel better Take dexamethasone twice for 2 days which will help with the swelling and your pain You may also use ibuprofen/Tylenol for fevers and pain Drink lots of fluids Follow-up with your primary doctor Prescriptions: New clindamycin HCl 300 mg capsule 300 mg PO Q8H Qty: 30 0RF dexamethasone 4 mg tablet 4 mg PO BID Qty: 4 0RF No Action azithromycin [Zithromax Z-Edu] 250 mg tablet See Rx Instructions .ROUTE .COMPLEX Qty: 6 0RF Rx Instructions: take 500 mg today (day 1), then 250 mg for 4 days (days 2-5) ibuprofen 600 mg tablet 600 mg PO Q8H PRN (Reason: pain) Qty: 20 0RF cephalexin 500 mg capsule 500 mg PO Q12H 10 Days Qty: 20 0RF azithromycin 250 mg tablet 250 mg PO DAILY 4 Days Qty: 4 0RF Rx Instructions: start on 12/02/2021 cyclobenzaprine 10 mg tablet 10 mg PO TID PRN (Reason: muscle spasm) Qty: 20 0RF oxycodone 5 mg tablet 5 mg PO Q6H PRN (Reason: pain) Qty: 10 0RF Rx Instructions: Patient may request partial refill; Partial Fill upon patient request. naproxen 500 mg tablet 500 mg PO BID PRN (Reason: pain) 7 Days Qty: 14 0RF Print Language: [place]ic
[2023-06-07] MEDS: dexAMETHasone 4 MG TABLET PO (13:05)
[2023-06-07] MEDS: Clindamycin HCL 300 MG CAPSULE PO (13:05)
[2023-06-07 13:10] VITALS: BP 130/76; PULSE 99; RESP 19; TEMP 36.8; O2SAT 97
== END 2023-06-07 13:11 | disposition home or self-care (01) ==
PROVIDERS: Emergency Provider Emergency Medicine
DX: J02.0 Streptococcal pharyngitis (principal); I10 Essential (primary) hypertension; Z79.899 Other long term (current) drug therapy
CPT/HCPCS: 87502; 87635; 87651; 99282; 99283; J8540